=== PATIENT | male | born 1990 | race Caucasian/White ===

== ENCOUNTER 2020-05-18 22:42 | Emergency (ER) | payer OTHER ==
[2020-05-18 22:44] VITALS: BP 146/95; Wt 84.1 kg
[2020-05-18 23:25] LABS: HEMATOCRIT 39.5 % (42.0-54.0); HEMOGLOBIN 12.7 g/dL (13.5-17.5); LYMPHOCYTES 20.6 % (15-50); MCH 26.5 pg (26.0-34.0); MCHC 32.2 g/dL (31.0-37.0); MCV 82.5 fL (80.0-100.0); MEAN PLATELET VOLUME 11.5 fL (7.4-10.4); NEUTROPHILS 69.6 % (40-80); PLATELET COUNT 185 10x3/uL (130-400); RBC 4.79 10x6/uL (4.20-6.10); RDW 17.5 % (11.5-14.5); WBC 7.7 10x3/uL (4.8-10.8)
[2020-05-18 23:34] LABS: CALC OSMOLALITY 277 mosm/kg (275-300); CALCIUM 8.4 mg/dL (8.5-10.1); CARBON DIOXIDE 26.6 mmol/L (21.0-32.0); CHLORIDE - SERUM 104 mmol/L (98-107); CREATININE - SERUM 0.9 mg/dL (0.6-1.3); GLUCOSE 110 mg/dL (74-106); POTASSIUM - SERUM 3.8 mmol/L (3.5-5.1); SODIUM 140 mmol/L (136-145); UREA NITROGEN 8 mg/dL (7-18); eGFR NON AFRICAN AMERICAN > 90 mL/min (90-120)
[2020-05-18 23:40] LABS: APTT 29.1 SECONDS (22.8-39.4); INR 0.93 (0.85-1.17); PROTIME 11.5 SECONDS (11.6-15.0)
[2020-05-18 23:43] LABS: ALKALINE PHOSPHATASE 76 U/L (30-120); ALT (SGPT) 33 U/L (10-68); BILIRUBIN - TOTAL 0.16 mg/dL (0.2-1.3); C-REACTIVE PROTEIN < 0.2 mg/dL (0.0-0.9); LIPASE 226 U/L (73-393); PROTEIN - SERUM 7.5 g/dL (6.4-8.2)
[2020-05-18 23:52] LABS: BILIRUBIN NEGATIVE (NEGATIVE); KETONE NEGATIVE (NEGATIVE); NITRITE NEGATIVE (NEGATIVE); UROBILINOGEN NORMAL mg/dL (< 2)
[2020-05-18 23:53] LABS: BACTERIA NONE SEEN HPF (NONE SEEN); SQUAMOUS EPITHELIAL 0-5 HPF (0-4); WHITE CELLS - URINE NONE SEEN HPF (0-1)
[2020-05-19] MEDS ORDERED: OMEPRAZOLE20 M1 PO (00:34)
[2020-05-19] MEDS ORDERED: ULTRAM50 MG PO (00:34)
== END 2020-05-19 00:40 | disposition home or self-care (01) ==
LOC: D.ER 22:42
PROVIDERS: Family Medicine
DX: K92.0 Hematemesis (principal)

== ENCOUNTER 2020-09-01 12:54 | Inpatient (IN) | payer MEDICAID ==
[~2020-09-01] VITALS: Ht 172.7 cm; Wt 72.6 kg
[~2020-09-01 12:54] MED LIST: OMEPRAZOLE20 M1 PO; ULTRAM50 MG PO
[2020-09-01 13:54] LABS: BASOPHILS 0.6 % (0-2); EOSINOPHILS 0.4 % (0-7); HEMATOCRIT 40.4 % (42.0-54.0); HEMOGLOBIN 13.2 g/dL (13.5-17.5); LYMPHOCYTES 19.4 % (15-50); MCH 28.6 pg (26.0-34.0); MCHC 32.5 g/dL (31.0-37.0); MONOCYTES 7.2 % (2-11); NEUTROPHILS 72.4 % (40-80); RBC 4.59 10x6/uL (4.20-6.10); RDW 13.8 % (11.5-14.5)
[2020-09-01 13:56] LABS: BILIRUBIN NEGATIVE (NEGATIVE); KETONE NEGATIVE mg/dL (< 1+); NITRITE NEGATIVE (NEGATIVE); PH 6.5 (5.0-8.0); UROBILINOGEN NORMAL mg/dL (< 2); WHITE CELLS - URINE 1 HPF (0-1)
[2020-09-01 13:58] LABS: BACTERIA FEW HPF (<MOD)
[2020-09-01 14:02] LABS: CALC OSMOLALITY 273 mosm/kg (275-300); CALCIUM 8.5 mg/dL (8.5-10.1); CARBON DIOXIDE 28.1 mmol/L (21.0-32.0); CHLORIDE - SERUM 101 mmol/L (98-107); CREATININE - SERUM 0.8 mg/dL (0.6-1.3); GLUCOSE 84 mg/dL (74-106); POTASSIUM - SERUM 3.7 mmol/L (3.5-5.1); SODIUM 138 mmol/L (136-145); UREA NITROGEN 11 mg/dL (7-18); eGFR NON AFRICAN AMERICAN > 90 mL/min (90-120)
[2020-09-01 14:03] LABS: APTT 30.1 SECONDS (22.8-39.4); INR 1.17 (0.85-1.17); PLATELET COUNT 277 10x3/uL (130-400); PROTIME 13.8 SECONDS (11.6-15.0)
[2020-09-01 14:08] LABS: ALBUMIN 3.8 g/dL (3.4-5.0); ALKALINE PHOSPHATASE 113 U/L (30-120); ALT (SGPT) 46 U/L (10-68); BILIRUBIN - TOTAL 0.16 mg/dL (0.2-1.3); PROTEIN - SERUM 7.7 g/dL (6.4-8.2)
--- NOTE | 2020-09-01 16:15 | NUR ---
PT STILL SPITTING UP BLOOD. DR. JOHN AWARE.
--- NOTE | 2020-09-01 16:31 | NUR ---
IN ROOM. SITUATED IN BED, RESTING COMFORTABLY. DENIES ANY NEEDS AT THIS TIME. GAFLAVIOD AT BEDSIDE. ORIENTED TO ROOM AND UNIT.
[2020-09-01 16:36] VITALS: BP 127/81
--- NOTE | 2020-09-01 17:37 | NUR ---
ONE TIME DOSE OF MORPHINE GIVEN. RESTING UPRIGHT IN BED. DENIES FURTHER NEEDS AT THIS TIME. WILL CONTINUE POC.
[2020-09-01] MEDS ORDERED: SEROQUEL400 MG PO (17:44)
[2020-09-01] MEDS ORDERED: CLOZARIL25 MG PO (17:45)
[2020-09-01] MEDS ORDERED: BUSPAR10 MG PO (17:45)
[2020-09-01 18:42] VITALS: BP 119/70
--- NOTE | 2020-09-01 18:50 | NUR ---
I have reviewed this patient and I concur with the Shift Assessment completed by the Licensed Practical Nurse today this shift.
--- NOTE | 2020-09-01 19:00 | NUR ---
IN BED, DENIES NEEDS AT THIS TIME. BED LOW POSITION, CALL LIGHT IN REACH. GUARD AT BEDSIDE. WILL CONITNUE TO MONITOR.
[2020-09-01 19:45] VITALS: BMI 24.3
[2020-09-01 20:00] LABS: UDS - AMPHET NEGATIVE QUAL (NEGATIVE); UDS - BARB NEGATIVE QUAL (NEGATIVE); UDS - BENZO POSITIVE QUAL (NEGATIVE); UDS - COCAINE NEGATIVE QUAL (NEGATIVE); UDS - OPIATE POSITIVE QUAL (NEGATIVE); UDS - PCP NEGATIVE QUAL (NEGATIVE); UDS - THC NEGATIVE QUAL (NEGATIVE)
[2020-09-01 21:00] LABS: HEMATOCRIT 36.6 % (42.0-54.0); HEMOGLOBIN 12.2 g/dL (13.5-17.5)
[2020-09-01] MEDS ORDERED: HYDROXYZINE HCL50 MG PO (22:25)
[2020-09-01] MEDS ORDERED: BENZTROPINE ME0.5 MG PO (22:25)
[2020-09-01] MEDS ORDERED: HALDOL DECAN50 MG/ML IM (22:26)
[2020-09-01 23:38] VITALS: BP 123/82
--- NOTE | 2020-09-01 23:45 | NUR ---
PT REPORTS HE HAS PSYCHIATRIC ISSUES, THAT THESE PROBLEM AROSE FROM ALF PROBLEMS HURTING HIMSELF. ASKED PT IF HE INTENDED TO JUST HURT HIMSELF OR TO DO WORSE. PT REPLIED, "I WAS TRYING TO KILL MYSELF. I'VE TRIED BEFORE, I STAY IN THE PSYCH UNIT AT THE CUSTODIAL." ENGINEERING COORDINATOR NOTIFIED, PSYCH NURSE CALLED FOR ASSESSMENT. GUARD AT BEDSIDE, CPOC.
--- NOTE | 2020-09-02 02:00 | NUR ---
PT REFUSING PSYCH NURSE SUICIDE ASSESSMENT. MEDICAL TECHNICAL WRITER, RAY, INFORMED, CPOC.
--- NOTE | 2020-09-02 02:06 | NUR ---
PRESENTED TO PATIENT'S ROOM AND ATTEMPTED TO PERFORM SUICIDE RISK ASSESSMENT. UPON ENTERING PATIENT'S ROOM INTRODUCED MYSELF AND ASKED PATIENT IF HE IS SUICIDAL TO WHICH PATIENT REPLIED "NO." WHEN INFORMED PATIENT HE HAD ANSWERED "YES" TO THE UNIT NURSE'S QUESTIONS PATIENT RELATED "I AM ALREADY ON A PSYCHIATRIC CHAVEZ IN HALFW[place]." PROCEEDED TO INFORM PATIENT HE IS IN THE HOSPITAL NOW AND THIS ASSESSMENT IS REQUIRED IF PATIENT CONFIRMS SI. PATIENT VERBALIZES "IT'S TO EARLY FOR THIS. I'M HURTING AND I'M GOING BACK TO SLEEP" HE COVERS HIS HEAD UP WITH THE SHEET. PT REFUSES TO TALK WITH NURSE. CALLED JAVON ZUÑIGA RNEMAIL PRODUCTION SPECIALIST AND INFORMED OF PATIENT'S BEHAVIOR AND REFUSAL TO COOPERATE WITH ASSESSMENT. WAS INSTRUCTED TO CHART WHAT TRANSPIRED AND THE PATIENT HAS A DESIGN ENGINEERING INTERN AT BEDSIDE.
[2020-09-02 04:00] VITALS: BP 113/74
[2020-09-02 06:13] LABS: EOSINOPHILS 1.7 % (0-7); HEMATOCRIT 38.3 % (42.0-54.0); HEMOGLOBIN 12.4 g/dL (13.5-17.5); LYMPHOCYTES 32.4 % (15-50); MCH 28.9 pg (26.0-34.0); MCHC 32.5 g/dL (31.0-37.0); MEAN PLATELET VOLUME 9.8 fL (7.4-10.4); MONOCYTES 11.5 % (2-11); NEUTROPHILS 53.4 % (40-80); PLATELET COUNT 249 10x3/uL (130-400); RDW 13.6 % (11.5-14.5)
[2020-09-02 06:26] LABS: ALBUMIN 2.9 g/dL (3.4-5.0); ALKALINE PHOSPHATASE 91 U/L (30-120); ALT (SGPT) 35 U/L (10-68); BILIRUBIN - TOTAL 0.17 mg/dL (0.2-1.3); CALC OSMOLALITY 281 mosm/kg (275-300); CALCIUM 8.1 mg/dL (8.5-10.1); CARBON DIOXIDE 26.9 mmol/L (21.0-32.0); CHLORIDE - SERUM 109 mmol/L (98-107); CREATININE - SERUM 0.8 mg/dL (0.6-1.3); GLUCOSE 86 mg/dL (74-106); POTASSIUM - SERUM 3.9 mmol/L (3.5-5.1); PROTEIN - SERUM 6.2 g/dL (6.4-8.2); SODIUM 143 mmol/L (136-145); eGFR NON AFRICAN AMERICAN > 90 mL/min (90-120)
[2020-09-02 06:28] LABS: UREA NITROGEN 7 mg/dL (7-18)
--- NOTE | 2020-09-02 08:17 | NUR ---
PT. RECEIVED RESTING IN BED, CALM, DENIES ANY PAIN OR NEEDS. MANAGER SYSTEM AT BEDSIDE. IV INTACT TO LEFT WRIST. PT REFUSES SCDS AND IV FLUIDS. CL WITHIN REACH. [id number].
[2020-09-02 08:44] VITALS: BP 115/78
--- NOTE | 2020-09-02 12:56 | NUR ---
PT. IN ROOM CRYING AND SAYING HIS RECTUM AND STOMACH HURT; OFFERED ORDERD TYLENOL AND REFUSES THIS. DR. ALFARO NOTIFIED AND SAYS HE WILL LOOK AT THINGS AND PLACE AN ORDER.
[2020-09-02 12:59] VITALS: Ht 172.7 cm; Wt 72.6 kg
[2020-09-02 13:01] VITALS: BP 155/125
--- NOTE | 2020-09-02 13:55 | NUR ---
PT STILL CRYING IN PAIN AND SAYS HE IS WANTING TO LEAVE AMA. DR. QUIROGA ON FLOOR AT THIS TIME AND NOTIFIED A 2ND TIME OF PT'S REQUEST.
[2020-09-02 16:37] VITALS: BP 123/89
[2020-09-03 04:00] VITALS: BP 99/55
[2020-09-03 07:18] LABS: BASOPHILS 0.8 % (0-2); EOSINOPHILS 2.3 % (0-7); HEMATOCRIT 39.5 % (42.0-54.0); HEMOGLOBIN 12.9 g/dL (13.5-17.5); LYMPHOCYTES 28.3 % (15-50); MCH 28.9 pg (26.0-34.0); MCHC 32.6 g/dL (31.0-37.0); MCV 88.5 fL (80.0-100.0); MEAN PLATELET VOLUME 9.8 fL (7.4-10.4); MONOCYTES 12.2 % (2-11); NEUTROPHILS 56.4 % (40-80); PLATELET COUNT 243 10x3/uL (130-400); RBC 4.46 10x6/uL (4.20-6.10); RDW 13.7 % (11.5-14.5)
[2020-09-03 07:32] LABS: ALBUMIN 3.3 g/dL (3.4-5.0); ALKALINE PHOSPHATASE 102 U/L (30-120); BILIRUBIN - TOTAL 0.13 mg/dL (0.2-1.3); CALCIUM 8.7 mg/dL (8.5-10.1); CARBON DIOXIDE 30.6 mmol/L (21.0-32.0); CHLORIDE - SERUM 107 mmol/L (98-107); CREATININE - SERUM 0.9 mg/dL (0.6-1.3); GLUCOSE 82 mg/dL (74-106); POTASSIUM - SERUM 4.1 mmol/L (3.5-5.1); SODIUM 143 mmol/L (136-145); eGFR NON AFRICAN AMERICAN > 90 mL/min (90-120)
[2020-09-03 07:33] LABS: ALT (SGPT) 51 U/L (10-68); CALC OSMOLALITY 282 mosm/kg (275-300); UREA NITROGEN 9 mg/dL (7-18)
--- NOTE | 2020-09-03 08:30 | NUR ---
PATIENT SITTING ON THE SIDE OF THE BED. IS SPITTING UP PINK/RED SPUTUM AND SAYS HE IS THROWING UP BLOOD. EXPLAINED TO PATIENT THAT IT LOOKS MORE LIKE DRAINAGE. ASKED IF IT FELT LIKE IT WAS DRAINING DOWN HIS SINUS OR IF IT WAS COMING UP HIS ESOPHAGUS. PATIENT STATED HE FELT LIKE IT WAS COMING UP HIS ESOPHAGUS AND THAT HE CAN TASTE IT AND FEEL IT IN THE BACK OF HIS THROAT. PATIENT ALSO SUCKING THROUGH HIS NOSE TO THE BACK OF HIS THROAT SNOT AND SPITTING IT OUT AND GAGGING ON IT. EXPLAINED TO PATIENT TO BLOW HIS NOSE OUT AND GAVE HIM A BOX OF KLEENEX BECAUSE HIM SUCKING IT DOWN IS MAKING HIM SICK AND MAKING IT WORSE. PATIENT VERBALIZED UNDERSTANDING. SPOKE WITH OLIVIER PAGAN AT THIS TIME ABOUT PATIENT. STATED SHE OULD BE UP TO SEE HIM SOON.
--- NOTE | 2020-09-03 09:15 | NUR ---
PATIENT REFUSED TO TAKE MEDS AT THIS TIME BECAUSE OF NAUSEA. EXPLAINED TO HIM HE MAY NOT WANT TO EAT EITHER RIGHT NOW BECAUSE IF HE IS THROWING UP BLOOD IT WILL MAKE IT WORSE AND HIS NAUSEA WORSE. VERBALIZED UNDERSTANDING. EXPLAINED I WOULD GET HIM SOME NAUSEA MEDICINE AND THAT I SPOKE WITH DR. ELIZONDO AND HE SAID IF PATIENT IS NOT ACTIVELY BLEEDING HE IS NOT GOING TO PACK HIS NOSE BUT THAT HE CAN HAVE AFRIN TO HELP WITH NOSE. ORDERS PLACED IN COMPUTER AT THIS TIME. CALL LIGHT WITHINR EACH.
[2020-09-03 09:39] VITALS: BP 129/67
--- NOTE | 2020-09-03 12:30 | NUR ---
PATIENT FEELING BETTER. WAS ABLE TO TAKE MEDS AND IS NOW EATING LUNCH. IV INTACT. NO COMPLAINTS OR SIGNS OF DISTRESS. GAURD AT BEDSIDE. CALL LIGHT WITHIN REACH.
[2020-09-03 13:39] VITALS: BP 120/65
[2020-09-03] MEDS ORDERED: PROTONIX40 MG PO (14:51)
[2020-09-03] MEDS ORDERED: CARAFATE1 G PO (14:52)
--- NOTE | 2020-09-03 16:06 | NUR ---
PATIENT RECIEVED DC INSTRUCTIONS. VERBALIZED UNDERSTANDING. AZAEL NOTIFIED CORRECTION. PATIENT WAITING ON TRANSPORTATION. PATIENT IV REMOVED WITH CATH TIP INTACT. CALL LIGHT WITHIN REACH.
== END 2020-09-03 17:01 | DRG 394 ==
LOC: D.ER 12:54 → D.EDHOLD 14:36 → OBSVTIME 14:36 → D.MS 14:36
PROVIDERS: Family Medicine; Internal Medicine Gastroenterology; ADMIT Family Medicine; ATTEND Family Medicine
PROC: 0DCP8ZZ Extirpation of Matter from Rectum, Via Natural or Artificial Opening Endoscopic (ICD-10-PCS; 2020-09-01)
PROC: 0DJ08ZZ Inspection of Upper Intestinal Tract, Via Natural or Artificial Opening Endoscopic (ICD-10-PCS; principal; 2020-09-01 15:30)
DX: T18.5XXA Foreign body in anus and rectum, initial encounter (principal); K92.0 Hematemesis; F20.9 Schizophrenia, unspecified